=== PATIENT | female | born 1925 | race Caucasian/White ===

== ENCOUNTER 2016-03-19 09:50 | Inpatient (IN) | payer MEDICARE, OTHER ==
[~2016-03-19] VITALS: Ht 165.1 cm; Wt 69.4 kg
[2016-03-19] VITALS (9 sets, daily range): BP systolic 184–202; BP diastolic 71–118; PULSE 60–71; RESP 17–26; O2SAT 92–98
[~2016-03-19 09:50] MED LIST: ASCO-294 PO; ATOR10TA66 PO; CARV25TA2 PO; FRSM80T PO; GARL1CAP7 PO; ISOS30TA8 PO; LEVO50TA6 PO; LOSA100T29 PO; POTA20TA16 PO; WARF3TAB7 PO
--- NOTE | 2016-03-19 09:56 | ED.REPORT ---
HPI-Stroke / CVA Mar 19, 2016 ED Provider: Ranjeet Galaviz MD History of Present Illness: SANTOSH Pt is an 89 y/o female anticoagulated on Warfarin w/ a hx of a-fib, HTN, CVA without residual deficits, pacemaker, presenting to the ED via EMS due to gradually improving stroke-like symptoms onset unknown. Last known normal is unclear but is at least the evening of 03/18/16. Neighbors noted that she had not opened her curtains this morning which is abnormal for her, she was then found in bed with an altered mental status and dysarthria. Upon EMS arrival, she was unable to move her left arm or left leg. Systolic BP was 210/100. Medics believe that her symptoms have improved by time of interview. She c/o associated severe headache onset yesterday. She denies CP, abdominal pain, nausea, vomiting, fever, chills. Her chief complaint at time of interview is that she is missing her skin-care appointment. Nursing Notes Stated Complaint: STROKE Chief Complaint: Neuro Symptoms/ Deficits Nursing Notes Reviewed: Yes ([employer] not reconciled) Allergies: Coded Allergies: codeine (Verified Allergy, Severe, 03/19/16) lisinopril (Verified Allergy, Severe, 05/17/14) zolpidem (Verified Allergy, Severe, 05/17/14) acetaminophen (Verified Allergy, Unknown, 05/17/14) hydrocodone (Verified Allergy, Unknown, 05/17/14) Uncoded Allergies: CLINDAMIACIN (Allergy, Unknown, 05/17/14) Scheduled Ascorbate Calcium (Vitamin C) 500 Mg Tablet 500 MG PO DAILY (Reported) Atorvastatin Calcium (Atorvastatin Calcium) 10 Mg Tablet 10 MG PO DAILY ( Reported) Furosemide (Furosemide) 80 Mg Tab 80 MG PO DAILY (Reported) Garlic (Garlic) 1 Each Tablet 1 EACH PO DAILY (Reported) Isosorbide MN ER (Isosorbide MN ER) 30 Mg Tab.er.24h 30 MG PO DAILY (Reported) Levothyroxine (Levothyroxine) 50 Mcg Tablet 50 MCG PO DAILY (Reported) Losartan Potassium (Losartan Potassium) 100 Mg Tablet 100 MG PO DAILY (Reported ) Metoprolol Succinate ER (Metoprolol Succinate ER) 50 Mg Tab.er.24h 50 MG PO BID (Reported) Potassium Chloride (Potassium Chloride) 10 Meq Capsule.er 20 MEQ PO BID ( Reported) Warfarin Sodium (Warfarin Sodium) 3 Mg Tablet 1.5 MG PO MWF (Reported) Warfarin Sodium (Warfarin Sodium) 3 Mg Tablet 3 MG PO SuTuThSa (Reported) General Time Seen by Provider: 09:55 Chief Complaint Weakness, Mental status change, Slurred speech Left-sided Hx Obtained From: Patient, EMS Arrived By: Ambulance Time last known well Unclear Sudden in Onset?: No (unclear) Progression Since Onset: Gradually improving Severity: Current: No pain currently Severity: Maximum: No pain Risk Factors )( TPA Administration/Criteria Stroke Thrombolytic Therapy : TPA Considered: Yes TPA Administered Intravenously: No, exclusion criteria NIH Stroke Scale Level of Consciousness: Not alert, arousable (1) Ask Month & Age: Both questions right (0) Open/Close Eyes/Hand Network Security Administrator: Performs 1 task (1) Horizontal EO Movements: None (0) Visual Wolff: No visual loss (0) (Difficulty assessing) Facial Palsy: Unil complete, up&low (3) Right Arm Motor Drift (10s): No drift 10 sec (0) Left Arm Motor Drift (10s): No movement (4) Right Leg Motor Drift (5s): No drift 5 sec (0) Left Leg Motor Drift (5s): No movement (4) Limb Ataxia FNF/Heel-Bautista: No ataxia (0) Sensation (Arms/Legs/Face): No sensory loss (0) Language Aphasia: Loss fluency ID matls (1) (able to read and name things, slow and had to work hard to name items) Dysarthria: Slurring intelligible (1) Extinction/Inattention: No exctinct/inattent (0) NIHSS Score: 15 Time NIHSS Performed: 10:10 Date NIHSS Performed: Mar 19, 2016 Past Medical History Past Medical History Ovarian cancer in remission following completion of 6 cycles of adjuvant chemotherapy in April 2012 Chronic anticoagulation or atrial fibrillation on warfarin History of tachybradycardia syndrome with pacemaker sign Hypertension Hypothyroid CVA Past Surgical History Pacemaker Hysterectomy in 1964 Colectomy in 1996 for colon carcinoma Smoking History Never Smoker Social History Alcohol Use: Denies alcohol use Drug Use: Denies drug use Ambulatory Status Independent Review of Systems Constitutional: Denies: Chills, Fever Cardiovascular: Denies: Chest pain GI: Denies: Abdominal pain, Nausea, Vomiting Neurologic: Reports: Confusion, Focal weakness (L sided), Headache, Slurred speech Complete sys rev & neg: except as marked. Physical Exam Initial Vital Signs Vital Signs (First) Date Time Temp Pulse Resp B/P Pulse Ox O2 Delivery O2 Flow Rate FiO2 03/19/16 09:51 37.0 71 26 194/71 96 Room Air 03/19/16 10:38 4 Initial VS: Reviewed, Vital signs abnormal ENT: Mucous membranes moist, Conjunctiva normal, No scleral icterus Abdomen / GI: Soft, Non-tender Skin: Warm, Dry, No cyanosis General/Constitutional: Awake No visible signs of trauma Head / Eyes: Atraumatic, Normocephalic, PERRL (3 mm bilat) Neck: Atraumatic, Supple, No meningismus, Full range of motion Respiratory / Chest: Atraumatic, Breath sounds NL, Breath sounds = bilat, No respiratory distress, No rales, No rhonchi, No wheezing, No retractions, No stridor, No chest tenderness, No chest wall deformity, No crepitus Cardiovascular: Heart rate NL, Heart sounds NL, No gallop, No murmurs, No rubs , Cap refill not delayed, Peripheral circulation NL Paced rhythm Neurologic: Cerebellar NL See NIH stroke scale = 15 Interpretation & Diagnostics Lab Results Interpretation Result Diagram: 03/19/16 0950 03/19/16 0950 Test 03/19/16 09:50 03/19/16 11:51 White Blood Count 8.5th/mm3 (3.8-10.1) Red Blood Count 4.89mil/mm3 (3.90-5.20) Hemoglobin 14.1g/dL (12.0-15.6) Hematocrit 43.7% (35.0-46.0) Mean Corpuscular Volume 89.4fL (81-100) Mean Corpuscular Hemoglobin 28.8pg (27.0-35.0) Mean Corpuscular Hemoglobin Concent 32.3% (32.0-37.0) Red Cell Distribution Width 14.9% (12.3-15.4) Platelet Count 145bil/L (150-400) Neutrophils (%) (Auto) 81.0% (40-74) Lymphocytes (%) (Auto) 12.3% (14-46) Monocytes (%) (Auto) 6.4% (4-12) Eosinophils (%) (Auto) 0.1% (0-5) Basophils (%) (Auto) 0% (0-3) Prothrombin Time 17.5sec (8.1-12.5) Prothromb Time International Ratio 1.62ratio Activated Partial Thromboplast Time 40.0sec (22.8-33.0) Sodium Level 143mEq/L (134-144) Potassium Level 4.8mEq/L (3.5-5.2) Chloride Level 106mEq/L (97-108) Carbon Dioxide Level 25mmol/L (18-29) Blood Urea Nitrogen 29mg/dL (8-27) Creatinine 1.58mg/dL (0.57-1.00) Estimat Glomerular Filtration Rate 44mL/min (>59) Glucose Level 145mg/dL (60-99) Calcium Level 9.5mg/dL (8.5-10.1) Magnesium Level 2.3mg/dL (1.6-2.6) Total Bilirubin 1.5mg/dL (0.0-1.2) Aspartate Amino Transf (AST/SGOT) 21U/L (0-50) Alanine Aminotransferase (ALT/SGPT) 13U/L (0-32) Alkaline Phosphatase 67U/L (25-165) Troponin T 0.026ug/L (0.0-0.011) Total Protein 7.0g/dL (6.4-8.4) Albumin 3.9g/dL (3.4-5.0) Lab Results Interpretation: cbc nl CMP mild renal insufficiency, chronic and unchanged INR subtherapeutic Troponin #1 elevated, uncertain significance (patient severely hypertensive, has stroke which can raise troponin, also has chronic renal insufficiency- all complicated interpretation) ECG Interpretation ECG Interpretation: Sinus rhythm rate 64 LBBB Compared to EKG taken Jan 2008, LBBB is new. Time: 10:38 Interpreted by: ED physician Normal ECG Interpretation: No acute ischemic changes CT Head Interpretation IMPRESSION: 1. No acute intracranial process. 2. Moderate atrophy and chronic microvascular ischemic changes. The above findings were discussed with Dr. Ranjeet Galaviz on 03/19/16 at 10:07 AM. This study fulfills neurological imaging criteria for inclusion or exclusion of acute stroke therapies based on available published neurological guidelines. Dictated by: Kaila Aparicio M.D. on 03/19/2016 at 10:09 Approved by: Kaila Aparicio M.D. on 03/19/2016 at 10:09 Study: Head CT no contrast Interpretation / Wet Read by: Interpret - Radiologist Re-Eval/Medical Decision Med Decision/Clinical Course This is an 89 year old female on warfarin for history of atrial fibrillation who was last seen yesterday by report, and last known to be normal 3 days ago was brought by EMS with concern for stroke. The neighbor noted that the patient had not opened her curtains today which is unusual, contacted a family member who drove her checked on the patient, found the patient in bed with left-sided weakness and slurred speech. The patient is able tell me she has had a headache since yesterday through slurred speech, it is not entirely clear when the hemiplegia of the left arm and left leg began, she feels her blood pressure is up. However while she can talk to me, she is not alert, and has been prompted to converse. Her actual chief complaint me is that she has a dermatology appointment today and so she had as call them to notify them that she would not be able to make it. She still has a moderate headache, but she does not want any pain medicine for it. ( Although the patient is able to complain about the dermatology appointment, and answer limited questions-is immediate obviously when he walked into the room the patient is very ill. Again while she will converse-required significant stimulation, she prefers to keep her eyes closed, her speech is slightly slurred , insight is not spectacular, she has gross hemiplegia on the left) She denies any trauma. She has had headaches before and says it often happens when her blood pressure is high. Patient does have a fairly severe stroke with an NIH stroke scale of at least 15 , but both he anticoagulated status, and a last known normal of 3 days ago ( with a report that she may been normal yesterday, onset yesterday,) and the fact the patient is complaining of a headache while on warfarin, all all contraindications to TPA and she is not a candidate (not to mention her age presents with an elevated risk of hemorrhage) CT the head revealed no clear acute process. She received rectal aspirin. While hypertensive, she has not cross the threshold of 220 systolic or 120 diastolic requiring medication intervention per hospital protocol, but a when necessary dose for labetalol has been placed should that occur Kcorqeki-ut-gai is present, but the daughter who power of patent prosecution attorney is coming up from [place]. Talk with the patient, I am concerned about her insight and decision-making capacity in terms really being able to answer the question about CODE STATUS. The [id number]-fc-[id number] who is present does not think the patient would wish to be intubated or resuscitated, but would prefer to have the family member is coming up from [place] to help make that decision as expected in a few hours. Case is discussed with the hospitalist and patient admitted for continued management. Patient was evaluated by speech therapy and is nothing by mouth. She received rectal aspirin. Source of Hx: Old records, EMS Re-Evaluation/Progress : Time of Eval: 10:16 Re-Evaluation/Progress Note: Pt rechecked. Informed pt of need for admission. Pt understands and agrees with plan for admission. All questions addressed. Consultation : Referral / Consult Name: Johnny Perez MD Consulted With: Hospitalist Call Returned at: 11:55 Lecturer In Marketing: Will see patient, Agrees with eval, Agrees with plan, Accepts admit Note: Case discussed. Differential Diagnosis: Positive: Cerebrovascular accident, Negative: Epidural hemorrhage, Hepatic encephalopathy, Hypoglycemia, Malignancy, Mass lesion, Sepsis, Subarachnoid hemorrhage, Subdural hemorrhage Counseled Regarding: Diagnosis, Lab results, Need for admission Patient Discharge & Departure Impression: Primary Impression: CVA (cerebral vascular accident) CVA mechanism: unspecified Qualified Code: I63.9 - Cerebral infarction, unspecified Additional Impressions: Anticoagulated on Coumadin Subtherapeutic international normalized ratio (INR) HTN (hypertension) Hypertension type: unspecified secondary hypertension Hypertension goal: unspecified goal Qualified Code: I15.9 - Secondary hypertension, unspecified Elevated troponin Disposition: ADMITTED TO HOSPITAL Discharge Condition All VS Reviewed: Yes Condition: Stable Referrals: Shin North MD (PCP) Crit Care Except Billable Proc Time Spent: 30-74 minutes Services Performed: Patient management by me, Time spent at bedside, Reviewing test results, Reviewing imaging, Discussing patient care, Documentation in record Scribe Attestation Portions of this note were transcribed by Faustino Underwood. I, Dr. Galaviz personally performed the history, physical exam and medical decision-making; I reviewed and confirmed the accuracy of the information in the transcribed note. Signed by Jaspal Calixto, 03/19/16 - 1130 copies to: Shin North MD, Matthew F MD Mar 19, 2016 09:56 FAUSTINO UNDERWOOD Mar 19, 2016 10:01
[2016-03-19 10:00] LABS: BASOPHILS % (AUTO) 0 % (0-3); EOSINOPHILS % (AUTO) 0.1 % (0-5); MONOCYTES % (AUTO) 6.4 % (4-12); Mean Corpuscular Hemoglobin 28.8 pg (27.0-35.0); Mean Corpuscular Volume 89.4 fL (81-100); Platelet Count 145 bil/L (150-400)
--- NOTE | 2016-03-19 10:10 | DRSVH ---
PROCEDURE: CT BRAIN (TPA) ([id number]) INDICATIONS: Stroke TECHNIQUE: Noncontrast 4.5 mm thick angled axial sections acquired from the foramen magnum to the vertex, with c oronal reformats. COMPARISON: [place], [place], PET/CT NECK TO MID THIGH, 02/20/2012, 13:51. FINDINGS: Image quality: Excellent. CSF spaces: Basal cisterns are patent. No extra-axial fluid collections. The ventricles are symmet jyoti in size and shape. Brain: No intracranial bleeds or masses. There is cerebral volume loss for age, with resultant vent ricular and sulcal prominence. There are periventricular and deep white matter chronic small vessel ischemic changes. There is intracranial internal carotid artery atherosclerosis. Skull and face: Calvarium and visualized facial bones appear intact, without suspicious lesions. Sinuses: Visualized sinuses and mastoids are clear. IMPRESSION: 1. No acute intracranial process. 2. Moderate atrophy and chronic microvascular ischemic changes. The above findings were discussed with Dr. Ranjeet Galaviz on 03/19/16 at 10:07 AM. This study fulfills neurological imaging criteria for inclusion or exclusion of acute stroke therapie s based on available published neurological guidelines. Dictated by: Kaila Aparicio M.D. on 03/19/2016 at 10:09 Approved by: Kaila Aparicio M.D. on 03/19/2016 at 10:09
[2016-03-19 10:13] LABS: INR 1.62 ratio
[2016-03-19 10:18] LABS: TROPONIN T 0.026 ug/L (0.0-0.011)
[2016-03-19] MEDS ORDERED: Labetalol 5 mg/mL 4 mL Inj IV PRN (11:00)
[2016-03-19] MEDS ORDERED: 0.9% Sodium Chloride 1,000 ML IV PRN (11:51)
[2016-03-19] MEDS ORDERED: Ondansetron 2 mg/mL 2 mL Inj IV PRN (11:55)
[2016-03-19] MEDS ORDERED: Polyethylene Glycol (PEG) 17 Gm Powder PO PRN (11:55)
[2016-03-19] MEDS ORDERED: Alum-Mag Hydrox-Simeth 30 mL Suspension PO PRN (11:55)
[2016-03-19] MEDS: 0.9% Sodium Chloride 1,000 ML IV SCH (13:10)
[2016-03-19] MEDS ORDERED: ISOS30TA4 PO (14:12)
[2016-03-19] MEDS ORDERED: GARL1TAB PO (14:12)
[2016-03-19] MEDS ORDERED: POTA10CA42 PO (14:12)
[2016-03-19] MEDS ORDERED: METO-272 PO (14:12)
--- NOTE | 2016-03-19 15:47 | PCM.HPMED ---
Subjective Date of Service Mar 19, 2016 Primary Provider: Admitting Physician: Johnny Perez MD Primary Care Physician: Shin North MD Attending Physician: Johnny Perez MD Admit Status: From the Emergency Department, Admit to [facility] Team Chief Complaint: 89-year-old woman with resistant hypertension and atrial fibrillation presents with acute CVA History of Present Illness: Patient lives alone and manages her own affairs. She last spoke to her family member on the evening prior to day of admission. At that time there were no complaints or abnormalities noted. In the morning on the day of admission a neighbor noticed that her curtains were not open and contacted the family. A [id number]-ris came to the home and found her mother obviously impaired with left-sided hemiplegia. The patient is somewhat sedated but has remained somewhat communicative throughout. She complains of a left-sided headache. She states that her A. fib was bad last night, but is not clear about what this means. She is concerned about missing her upcoming dermatology appointment. When asked she is not aware of any neurologic deficits. She is oriented to date but does not now cannot recognize she is in the hospital. Review of Systems: Patient is unable to comply with review of systems due to poor attention span and encephalopathy. Allergies Coded Allergies: codeine (Verified Allergy, Severe, 03/19/16) lisinopril (Verified Allergy, Severe, 05/17/14) zolpidem (Verified Allergy, Severe, 05/17/14) acetaminophen (Verified Allergy, Unknown, 05/17/14) hydrocodone (Verified Allergy, Unknown, 05/17/14) Uncoded Allergies: CLINDAMIACIN (Allergy, Unknown, 05/17/14) Home Medications Atorvastatin 10 mg daily Furosemide 80 mg daily Isosorbide mononitrate 30 mg daily Levothyroxine 50 g daily Losartan 100 mg daily Metoprolol succinate ER 50 mg twice a day Potassium chloride 20 mg twice a day Warfarin 3 mg, alternating with 1.5 mg on MWF PMH # Hypertension given family reports difficult to control blood pressure with frequent systolics in 200 range # atrial fibrillation and/or SVT - status post pacemaker device; on beta yimi and warfarin # History of ovarian cancer in remission since 2012; status post carboplatin adjuvant therapy # History of colon cancer status post partial colectomy in 1986 # History of Aldridge's palsy # Questionable history of prior CVA - family denies this and suggested may have been confused with an episode of Aldridge's palsy. Family History No hypercoagulability disorders Social History Hx Alcohol Use: No Hx Substance Use: No Hx Tobacco Use: No Smoking Status: Never Smoker Living Arrangement: Alone (manages most of her own ADLs; family nearby) Exam Vital Signs Vital Sign - Last Date Time Temp Pulse Resp B/P Pulse Ox O2 Delivery O2 Flow Rate FiO2 03/19/16 13:27 62 03/19/16 12:37 37.2 18 184/118 98 Nasal Cannula 2.00 Exam Constitutional: Elderly woman with obvious left face droop lying quietly in bed ; vital signs noted Eyes: Right-sided gaze preference, sclerae anicteric, no conjunctival pallor, ENMT: nose atraumatic; oral mucosa seems moist Neck: supple; no audible bruit Chest: Breathing pattern is symmetric, no pain or lesions Resp: auscultation generally clear, no wheezes, rales; patient unable to sit up Cardiac: S1, S2, regular, no murmur Abdomen: bowel sounds present, nontender, no organomegaly Musculoskeletal: no joints with acute erythema, swelling Skin and soft tissues: no rash; no pitting edema Peripheral pulses: normal at wrist, feet Lymphatic: no adenopathy cervical Neurological: Cranial Nerves - left face droop, minimal opening left eye. Unable to comply with extraocular movement testing. No blink reflex from right field. Reflexes - BJ 2+, KJ 3+ on right with clonus, 1+ on the left; Babinski is positive on left Motor - 0/5 strength left arm and left leg, flaccid tone in left arm, normal tone left leg; motor function 54/5 on right; no pronator drift on right Coordination - unable to comply fully but seems normal on the right Sensory - unable to elicit reliable response Psych & Mental Status - sleepy but recalls today's date, thinks she is at home, answers simple questions recalls several accurate details Lab and Diagnostics Result Diagram: 03/19/16 0950 03/19/16 0950 X-Rays, CTs and MRIs PROCEDURE: CT BRAIN (TPA) ([id number]) FINDINGS: Image quality: Excellent. Brain: No intracranial bleeds or masses. There is cerebral volume loss for age , with resultant ventricular and sulcal prominence. There are periventricular and deep white matter chronic small vessel ischemic changes. There is intracranial internal carotid artery atherosclerosis. IMPRESSION: 1. No acute intracranial process. 2. Moderate atrophy and chronic microvascular ischemic changes. Dictated by: Kaila Aparicio M.D. on 03/19/2016 at 10:09 . 12-lead ECG 03/19 and NSR rate 65, LBBB pattern, inverted T waves inferiorly and V4-V6, slight ST depression II, V5-V6 Assessment & Plan 82-year-old woman with history of hypertension and A. 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 She is not a candidate for TPA, largely because of timing from last normal neuro state. Initial noncontrast head CT does not show CVA. CT suggests atherosclerotic disease of carotid distribution. Etiologies either athero-thrombotic versus cardio thromboembolic. Current headache is plausibly related to her CVA. - MRI/MRA - Echocardiogram - Telemetry monitoring - Permissive HTN up to SBP 220, DBP 120 - PT, OT - Speech Consult, swallow evaluation, NPO, aspiration precautions, maintenance IV fluids - VTE prophylaxis - warfarin at present, transitioned to subcutaneous heparin or enoxaparin when INR less than 1.5 - ASA - d/c on statin and anti-platelet therapy # Atrial fibrillation, chronic paroxysmal. She is currently in sinus rhythm. Anticoagulation was subtherapeutic. - Hold warfarin at present while observing for risk of hemorrhagic conversion of CVA - Repeat INR in a.m. - Rate control as needed if she reverts to A. fib with parenteral beta yimi - Telemetry monitoring # Hypertension - Permissive hypertension criteria 48 hours then resume blood pressure control # Elevated bilirubin. Other LFTs are normal. No signs of abdominal pathology. - Follow at appropriate interval. Stable, resolved and her chronic problems: #Chronic kidney disease stage III. Creatinine creatinine of 1.65, 1.58 seems in range of her recent baseline. - Avoid nephrotoxins - Follow BMP # Ovarian cancer in remission VTE prophylaxis - currently anticoagulated on warfarin; will initiate heparin prophylaxis as INR drops. CODE STATUS discussed with family who endorsed that she has a POLST form confirming DO NOT RESUSCITATE/DO NOT INTUBATE Pain Evaluation: Adequate Pain Control GI Prophylaxis: Not indicated VTE Prophylaxis: Theraputic Anticoag with Warfarin Resuscitation Status: DNR/DNI:Do Not Resuscitate/Intubate Time spent 60 minutes Johnny Perez MD Mar 19, 2016 15:47
--- NOTE | 2016-03-19 15:59 | DRSVH ---
PROCEDURE: US BILATERAL DUPLEX DOPPLER IMAGING OF THE CAROTIDS ([id number]) INDICATIONS: Evaluate stroke follow up TECHNIQUE: Color and pulse Doppler interrogation was performed of both carotid systems, with image documentation and velocity measurements. COMPARISON: None. FINDINGS: All stenosis calculations are based on NASCET criteria. Right side: Brachial blood pressure: 184/118 and mm Hg. Common Carotid Artery(Distal) PSV: 60.20 cm/s Internal Carotid Artery PSV- Proximal: 46.30 cm/s Mid-lon.10 cm/s Distal: 43.30 cm/s EDV - Proximal: 10.80 cm/s Mid-lon.40 cm/s Distal: 13.90 cm/s External Carotid Artery(Proximal) PSV: 78.10 cm/s ICA/CCA PSV ratio: 0.8 Aggarwal scale imaging description: Minimal plaque. Percent internal carotid artery stenosis: Less than 50%. Vertebral artery: Flow direction is antegrade. Left side: Brachial blood pressure: Not obtained. Common Carotid Artery(Distal) PSV: 54.10 cm/s Internal Carotid Artery PSV - Proximal: 66.80 cm/s Mid-lon cm/s Distal: 80 cm/s EDV - Proximal: 15.90 cm/s Mid-lon cm/s Distal: 23.70 cm/s External Carotid Artery(Proximal) PSV: 97.70 cm/s ICA/CCA PSV ratio: 1.5 Aggarwal scale imaging description: Minimal plaque. Percent internal carotid artery stenosis: Less than 50%. Vertebral artery: Flow direction is antegrade. IMPRESSION: Less than 50% bilateral internal carotid artery stenosis. Hypertension at time of exam. Dictated by: Karson Gomez RR Interpreted: Frida Felder MD on 03/19/2016 at 15:59 Transcribed by: KIKO on 03/19/2016 at 15:59 Approved by: Frida Felder MD, PhD on 03/19/2016 at 16:57
[2016-03-19 23:58] LABS: APPEARANCE,URINE SLIGHTLY CLOUDY (CLEAR,HAZY); COLOR,URINE YELLOW (YELLOW); OCCULT BLOOD,URINE LARGE (NEGATIVE)
[2016-03-19 23:59] LABS: UROBILINOGEN,URINE NORMAL (NORMAL)
[2016-03-20] VITALS (10 sets, daily range): BP systolic 153–210; BP diastolic 73–121; PULSE 62–101; RESP 20–26; O2SAT 95–97
[2016-03-20] MEDS: 0.9% Sodium Chloride 1,000 ML IV SCH ×2 (01:36→16:12)
[2016-03-20 05:48] LABS: Mean Corpuscular Hemoglobin 29.1 pg (27.0-35.0); Mean Corpuscular Volume 91.3 fL (81-100)
[2016-03-20 06:06] LABS: INR 1.68 ratio
[2016-03-20] MEDS: hydrALAZINE 20 mg/mL Inj IVPUSH PRN (10:22)
--- NOTE | 2016-03-20 12:49 | DRSVH ---
[facility] [address] [place] [address] Echocardiogram Report Name: CHIDI FIGUEROA EStudy Date: 03/20/2016 Height: 65 in Hospital Exam Location: [facility] Weight: 150 lb Gender: Female BSA: 1.8 m2 : 1925 Age: 89 yrs BP: 204/79 mmHg Reason For Study: CVA Ordering Physician: Performed By: Sarah Ruiz Referring Physician: Shin North Interpretation Summary The left ventricle is normal in size. Left ventricular systolic function is normal. The ejection fraction is estimated to be 60-65%. LVEF is unchanged since prior study. There are no focal wall motion abnormalities. Borderline right ventricular enlargement. There is a pacemaker lead in the right ventricle. The right ventricular systolic function is normal. The right ventricular systolic pressure is estimated at 55 mmHg assuming a right atrial pressure of 8 mm Hg. RVSP has increased. The left atrium is mildly dilated. Right atrial size is normal. There is moderate tricuspid regurgitation. There is mild mitral regurgitation. There is mild aortic regurgitation. There is no other significant valvular heart disease. The ascending aorta is mildly enlarged. The aortic arch is mild-moderately enlarged. Moderate atherosclerotic plaque(s) in the aortic arch. Procedure: A two-dimensional transthoracic echocardiogram with color flow and Doppler was performed. The study quality was technically adequate. Comparison is made with the echocardiogram of 09-18-15. The patient has a paced rhythm. Left Ventricle: The left ventricle is normal in size. Left ventricular systolic function is normal. The ejection fraction is estimated to be 60-65%. There are no focal wall motion abnormalities. Diastolic function could not be accurately assessed due to paced rhythm. Right Ventricle: Borderline right ventricular enlargement. There is a pacemaker lead in the right ventricle. The right ventricular systolic function is normal. Atria: The left atrium is mildly dilated. Right atrial size is normal. There is a catheter/pacemaker lead seen in the right atrium. The interatrial septum is intact with no evidence for an atrial septal defect. Mitral Valve: The mitral valve leaflets appear mildly thickened, but open well. There is mild to moderate mitral annular calcification. There is mild mitral regurgitation. Aortic Valve: The aortic valve is trileaflet. Leaflet mobility is mildly reduced. The aortic valve is moderately calcified. There is no hemodynamically significant valvular aortic stenosis. There is mild aortic regurgitation. Tricuspid Valve: The tricuspid valve leaflets are thin and pliable. There is moderate tricuspid regurgitation. The right ventricular systolic pressure is estimated at 55 mmHg assuming a right atrial pressure of 8 mm Hg. Pulmonic Valve: The pulmonic valve is normal in structure and function. There is trace pulmonic regurgitation. There is no other significant valvular heart disease. Great Vessels: The aortic root is not well visualized. The ascending aorta is mildly enlarged. The aortic arch is mild-moderately enlarged. Moderate atherosclerotic plaque(s) in the aortic arch. The IVC is of normal diameter and collapses less than 50% with a sniff. This suggests a right atrial pressure of 8 mm Hg. Pericardium/ Pleura There is no pericardial effusion. There is a small left -sided pleural effusion. MMode/2D Measurements & Calculations LVIDd LA dimension: 4.2 cm RA long axis: 5.7 cm LVOT diam: 1.8 cm : 4.3 cm Ao root diam LVIDs LA A2 area: 21.3 cm RA area: 20.1 cm : 2.5 cm LA A4 area: 24.7 cm RA vol: 60.0 ml Aortic Jxn: 2.2 cm FS: 43.4 % LA length (vol) RA : 34.3 ml/m asc Aorta Diam IVSd RVDd major: 5.8 cm : 0.9cm LA vol: 72.1 ml Ao Arch Diam (Prox LVPWd LA vol index Trans): 3.8 cm : 0.8cm IVC diam: 1.9 cm YON (plan) LV allen. diameter/BSA LV sys. diameter/BSA RVD1 (basal) : 1.1 cm2 (cm/m^2): 2.5 (cm/m^2): 1.4 : 4.3 cm RVD2 (mid) : 3.7 cm Doppler Measurements & Calculations Ao V2 max: 218.6 cm/sec MV P1/2t TR max jeffry MV V2 mean Ao max P.1 mmHg : 53.0 msec : 342.1 cm/sec : 66.7 cm/sec Ao mean P.8 mmHg MVA(VTI): 4.0 cm2 TR max PG MV mean PG LVOT Max Jeffry : 46.8 mmHg : 115.5 cm/sec PA V2 max MV V2 VTI YON(I,D): 1.7 cm : 90.5 cm/sec : 16.6 cm sev ratio: 0.63 PA mean PG PA Accel Time MV P1/2t max jeffry Ao V2 mean LV V1 max PG PA V2 mean : 154.0 cm/sec : 58.2 cm/sec MVA(P1/2t): 4.2 cm2 Ao V2 VTI: 39.4 cmLV V1 VTI: 24.9 cm YON(V,D): 1.4 cm2 YON indexed to BSA (cm^2/m^2): 0.97 Reading Physician:NARCISA
--- NOTE | 2016-03-20 15:46 | DRSVH ---
PROCEDURE: X-RAY LEFT KNEE, THREE VIEWS ([id number]) INDICATIONS: pain TECHNIQUE: 3 views of the knee were acquired. COMPARISON: None. FINDINGS: Bones: There is mild bilateral femorotibial compartment joint space narrowing. There are small tricom partmental osteophytes. There is lateral calcific tendinitis. Soft tissues: No joint effusion. No suspicious soft tissue calcifications. IMPRESSION: Mild degenerative change and calcific tendinitis. Dictated by: Izzy Ron M.D. on 03/20/2016 at 15:44 Approved by: Izzy Ron M.D. on 03/20/2016 at 15:44
[2016-03-21] VITALS (12 sets, daily range): BP systolic 182–215; BP diastolic 106–127; PULSE 10–123; RESP 20–26; O2SAT 95–97
[2016-03-21] MEDS: 0.9% Sodium Chloride 1,000 ML IV SCH ×2 (02:00→15:29)
[2016-03-21] MEDS: hydrALAZINE 20 mg/mL Inj IVPUSH PRN ×2 (09:34→23:57)
--- NOTE | 2016-03-21 11:19 | PCM.PNMED ---
Subjective Date of Service Mar 21, 2016 Subjective The patient is able to speak today. She denies discomfort. She has relatively fluent speech. She can understand and follow commands. She has a dense left hemiparesis. She has not been reevaluated by speech. She states she is very thirsty. Exam Vital Signs Vital Sign - Last Date Time Temp Pulse Resp B/P Pulse Ox O2 Delivery O2 Flow Rate FiO2 03/21/16 10:58 99 186/106 03/21/16 09:19 36.6 20 96 Nasal Cannula 03/21/16 04:09 3.00 Intake and Output 03/20/16 03/20/16 03/21/16 Cumulative From/Thru 14:59 22:59 06:59 03/19/16 09:51 - 03/21/16 06:47 Intake Total 866 ml 960 ml 3167 ml Output Total 1700 ml 500 ml 3300 ml Balance -834 ml 460 ml -133 ml Intake Oral 0 ml 0 ml 0 ml IV Total 866 ml 960 ml 3167 ml Output Urine Total 1700 ml 500 ml 3300 ml Exam Dense left hemiparesis. She also has a left facial droop. She has mild dysarthria. Pupils are symmetric. She has clear lungs and normal effort. Heart is regular without murmur Abdomen soft nondistended Extremities are free of edema good pedal pulses. Skin is free of rash or lesion IVs and Medications Medications Reviewed: Medications were reviewed in detail Lab and Diagnostics Result Diagram: 03/20/16 0424 03/20/16 0424 X-Rays, CTs and MRIs PROCEDURE: CT BRAIN (TPA) ([id number]) FINDINGS: Image quality: Excellent. Brain: No intracranial bleeds or masses. There is cerebral volume loss for age , with resultant ventricular and sulcal prominence. There are periventricular and deep white matter chronic small vessel ischemic changes. There is intracranial internal carotid artery atherosclerosis. IMPRESSION: 1. No acute intracranial process. 2. Moderate atrophy and chronic microvascular ischemic changes. Dictated by: Kaila Aparicio M.D. on 03/19/2016 at 10:09 . 12-lead ECG 03/19 and NSR rate 65, LBBB pattern, inverted T waves inferiorly and V4-V6, slight ST depression II, V5-V6 Assessment & Plan 82-year-old woman with history of hypertension and A. 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 She is not a candidate for TPA, largely because of timing from last normal neuro state. Initial noncontrast head CT does not show CVA. CT suggests atherosclerotic disease of carotid distribution. Etiologies either athero-thrombotic versus cardio thromboembolic. Current headache is plausibly related to her CVA. -The patient is a pacemaker therefore cannot have an MRI. She has full visual gil to the left and possibly mild neglect. The plan is a serial CT scan to see if this is a cortical infarct. We will also start rectal aspirin. # Atrial fibrillation, chronic paroxysmal. She is currently in sinus rhythm. Anticoagulation was subtherapeutic. - Hold warfarin at present while observing for risk of hemorrhagic conversion of CVA - Repeat INR in a.m. - Rate control as needed if she reverts to A. fib with parenteral beta yimi - Telemetry monitoring will need to discuss whether or not resumption of Coumadin and when is appropriate. This will likely be delayed by about 2 weeks given the size of her probable right hemispheric cortical infarct. # Hypertension - Permissive hypertension criteria 48 hours then resume blood pressure control # Elevated bilirubin. Other LFTs are normal. No signs of abdominal pathology. - Follow at appropriate interval. Stable, resolved and her chronic problems: #Chronic kidney disease stage III. Creatinine creatinine of 1.65, 1.58 seems in range of her recent baseline. - Avoid nephrotoxins - Follow BMP # Ovarian cancer in remission VTE prophylaxis - currently anticoagulated on warfarin; will initiate heparin prophylaxis as INR drops. CODE STATUS discussed with family who endorsed that she has a POLST form confirming DO NOT RESUSCITATE/DO NOT INTUBATE Pain Evaluation: Adequate Pain Control GI Prophylaxis: Not indicated VTE Prophylaxis: Theraputic Anticoag with Warfarin Resuscitation Status: DNR/DNI:Do Not Resuscitate/Intubate Time spent 30 minutes Silvano Jc MD Mar 21, 2016 11:19
--- NOTE | 2016-03-21 13:25 | DRSVH ---
PROCEDURE: CT BRAIN WITHOUT CONTRAST ([id number]) INDICATIONS: stroke TECHNIQUE: Noncontrast 4.5 mm thick angled axial sections acquired from the foramen magnum to the vertex, with c oronal reformats. COMPARISON: [facility], US, US CAROTID DPLX DOPPLER BILAT, 03/19/2016, 13:31. [facility], CT, BRAIN (TPA), 03/19/2016, 10:01. FINDINGS: Image quality: Excellent. CSF spaces: Basal cisterns are patent. No extra-axial fluid collections. The ventricles are symmet jyoti in size and shape. Brain: There is a relatively broad area of infarction seen involving the right basal ganglia and the thapa radiata. This has progressed compared to the prior examination and is far more conspicuous o n the current study. There is a mild degree of hyperdensity seen along the posterior aspect of the i nfarcted region of the brain, as on series 2 image 15. No masses are seen. There is cerebral volume loss for age, with resultant ventricular and sulcal pro minence. There are periventricular and deep white matter chronic small vessel ischemic changes. The re is intracranial internal carotid artery atherosclerosis. Skull and face: Calvarium and visualized facial bones appear intact, without suspicious lesions. In cidental note is made of hyperostosis frontalis. This is not considered to be pathologic in a woman o f this age. Sinuses: Visualized sinuses and mastoids are clear. IMPRESSION: Broad area of infarction involving the right basal ganglia and thapa radiata, which has developed since the prior CT. Along the posterior aspect of the infarcted brain, there is a mild degree of hyperdensity. This is h ighly worrisome for mild hemorrhagic transformation. Note is made of age-appropriate brain parenchymal volume loss and chronic small vessel ischemic [place] es. Note: Case discussed by telephone with Dr. Silvano Jc at [address] time on March 21, 2016. Dictated by: Akhil Monte M.D. on 03/21/2016 at 12:24 Approved by: Akhil Monte M.D. on 03/21/2016 at 12:24
[2016-03-22] VITALS (17 sets, daily range): BP systolic 172–204; BP diastolic 95–125; PULSE 75–133; RESP 16–24; O2SAT 89–99
[2016-03-22] MEDS: 0.9% Sodium Chloride 1,000 ML IV SCH ×2 (04:47→16:48)
--- NOTE | 2016-03-22 09:07 | PCM.PNMED ---
Subjective Date of Service Mar 22, 2016 Subjective She is to affect dysarthric. She denies any pain. She is unable to move her left arm or leg. Exam Vital Signs Vital Sign - Last Date Time Temp Pulse Resp B/P Pulse Ox O2 Delivery O2 Flow Rate FiO2 03/22/16 04:48 92 22 98 OxyMask 2.00 03/22/16 03:34 36.4 173/95 Intake and Output 03/21/16 03/21/16 03/22/16 Cumulative From/Thru 15:00 23:00 07:00 03/19/16 09:51 - 03/22/16 06:38 Intake Total 915 ml 847 ml 4929 ml Output Total 750 ml 700 ml 4750 ml Balance 165 ml 147 ml 179 ml Intake Oral 0 ml 0 ml 0 ml IV Total 915 ml 847 ml 4929 ml Output Urine Total 750 ml 700 ml 4750 ml # Bowel Movements 0 0 0 Exam She has a dense left hemiparesis with a left facial droop. She has dysarthric speech. She is calm. Neck is supple Lungs are clear with normal effort Heart is regular without murmur Abdomen is soft and nondistended. Extremities are free of edema Good pedal pulses. IVs and Medications Medications Reviewed: Medications were reviewed in detail Lab and Diagnostics Result Diagram: 03/20/1642303/20/16423 X-Rays, CTs and MRIs PROCEDURE: CT BRAIN (TPA) ([id number]) FINDINGS: Image quality: Excellent. Brain: No intracranial bleeds or masses. There is cerebral volume loss for age , with resultant ventricular and sulcal prominence. There are periventricular and deep white matter chronic small vessel ischemic changes. There is intracranial internal carotid artery atherosclerosis. IMPRESSION: 1. No acute intracranial process. 2. Moderate atrophy and chronic microvascular ischemic changes. Dictated by: Kaila Aparicio M.D. on 03/19/2016 at 10:09 . 12-lead ECG 03/19 and NSR rate 65, LBBB pattern, inverted T waves inferiorly and V4-V6, slight ST depression II, V5-V6 Assessment & Plan 82-year-old woman with history of hypertension and A. fib presents with right- sided CVA with acute left hemiplegia Acute, active and or high risk problems: 1. Acute CVA. POA. Not a candidate for TPA. The patient has a dense left hemiparesis. CT scan indicates and a a lacunar infarct with possible small amount of hemorrhagic conversion. She had a headache yesterday which has resolved. She also had fairly severe dysphagia prohibiting oral intake. She is currently on a rectal aspirin. 2. Atrial fibrillation, chronic paroxysmal. She is currently in sinus rhythm. Anticoagulation was subtherapeutic. She will likely require a delayed reinstitution of Coumadin given abnormal signal on her CAT scan suggesting a possible small amount of hemorrhagic conversion. 3. Hypertension - Permissive hypertension criteria 48 hours then resume blood pressure control. Will begin to tighten her blood pressure control today with when necessary hydralazine. 4. Dysphagia, POA. We will reevaluate with speech. If she fails to improve substantially we will have to consider a short-term feeding tube. 5. Elevated bilirubin. Other LFTs are normal. No signs of abdominal pathology. - Follow at appropriate interval. Stable, resolved and her chronic problems: 6. Chronic kidney disease stage III. Creatinine creatinine of 1.65, 1.58 seems in range of her recent baseline. - Avoid nephrotoxins - Follow BMP 7. Ovarian cancer in remission 8. VTE prophylaxis - currently anticoagulated on warfarin; will initiate heparin prophylaxis as INR drops. CODE STATUS discussed with family who endorsed that she has a POLST form confirming DO NOT RESUSCITATE/DO NOT INTUBATE Pain Evaluation: Adequate Pain Control GI Prophylaxis: Not indicated VTE Prophylaxis: Theraputic Anticoag with Warfarin Resuscitation Status: DNR/DNI:Do Not Resuscitate/Intubate Time spent 30 minutes Silvano Jc MD Mar 22, 2016 09:07
[2016-03-22] MEDS: Labetalol 5 mg/mL 4 mL Inj IVPUSH PRN ×2 (09:29→16:14)
[2016-03-22] MEDS: hydrALAZINE 20 mg/mL Inj IVPUSH PRN ×3 (14:27→23:24)
--- NOTE | 2016-03-22 16:38 | DRSVH ---
PROCEDURE: X-RAY CHEST ONE VIEW, PORTABLE ([id number]) INDICATIONS: CONFIRM NG TECHNIQUE: One view of the chest was acquired. COMPARISON: [facility], CR, CHEST 2VW, 06/08/2008, 7:21. FINDINGS: Surgical changes and devices: Pacemaker. Nasogastric tube is placed with distal tip projecting below the left hemidiaphragm. Lungs and pleura: Trace left effusion.. Lungs are clear. Mediastinum: Mediastinal contours appear normal. Heart size is mildly enlarged. Bones and chest wall: No suspicious bony lesions. Overlying soft tissues appear unremarkable. IMPRESSION: Nasogastric tube as above. Trace left effusion. Dictated by: Kaila Aparicio M.D. on 03/22/2016 at 16:32 Approved by: Kaila Aparicio M.D. on 03/22/2016 at 16:32
--- NOTE | 2016-03-22 18:12 | DRSVH ---
PROCEDURE: X-RAY ABDOMEN, ONE VIEW ([id number]) INDICATIONS: FEED TUBE PLACEMENT TECHNIQUE: One view of the abdomen acquired. COMPARISON: None. FINDINGS: Surgical changes and devices: Partially visualized pacemaker and nasogastric tube are present. Distal tip of the latter is projecting below the left hemidiaphragm. Clips are present overlying the right upper quadrant. Bowel: Bowel gas pattern is normal. Soft tissues: No suspicious abdominal calcifications. Visualized solid organ contours appear normal in size. Bones: No suspicious bony lesions. IMPRESSION: Nasogastric tube as above. Dictated by: Kaila Aparicio M.D. on 03/22/2016 at 18:06 Approved by: Kaila Aparicio M.D. on 03/22/2016 at 18:06
[2016-03-22] MEDS: Heparin 5,000 Unit/mL Inj SUBQ SCH (20:24)
[2016-03-23] VITALS (12 sets, daily range): BP systolic 164–208; BP diastolic 81–123; PULSE 65–108; RESP 16–20; O2SAT 95–97
[2016-03-23] MEDS: hydrALAZINE 20 mg/mL Inj IVPUSH PRN ×3 (03:03→21:45)
[2016-03-23] MEDS: 0.9% Sodium Chloride 1,000 ML IV SCH ×2 (05:03→17:45)
[2016-03-23] MEDS: Heparin 5,000 Unit/mL Inj SUBQ SCH ×2 (08:31→21:48)
[2016-03-23] MEDS: Labetalol 5 mg/mL 4 mL Inj IVPUSH PRN (08:32)
[2016-03-23] MEDS: Acetaminophen IV 1,000 MG in IV Premix 1 EACH IV PRN (08:52)
--- NOTE | 2016-03-23 13:24 | PCM.PNMED ---
Subjective Date of Service Mar 23, 2016 Subjective She has dysarthric speech but is comfortable. She denies any dyspnea. No abdominal pain. She has a dense left hemiparesis. Exam Vital Signs Vital Sign - Last Date Time Temp Pulse Resp B/P Pulse Ox O2 Delivery O2 Flow Rate FiO2 03/23/16 11:51 36.6 65 20 169/83 95 Nasal Cannula 2.00 Intake and Output 03/22/16 03/22/16 03/23/16 Cumulative From/Thru 14:59 22:59 06:59 03/19/16 09:51 - 03/23/16 06:37 Intake Total 1050 ml 885 ml 6864 ml Output Total 1000 ml 5750 ml Balance 1050 ml -115 ml 1114 ml Intake Oral 0 ml 0 ml IV Total 1050 ml 885 ml 6864 ml Output Urine Total 1000 ml 5750 ml # Bowel Movements 0 Exam She is arousable. Somewhat lethargic. She has had left arm and leg hemiparesis and left facial droop. Conjunctivae days. Next upper Lungs are clear with normal effort. Heart is regular without murmur abdomen is soft nondistended. Extremities are free of edema good pedal pulses. IVs and Medications Medications Reviewed: Medications were reviewed in detail Lab and Diagnostics Result Diagram: 03/20/1642303/20/16423 X-Rays, CTs and MRIs PROCEDURE: CT BRAIN (TPA) ([id number]) FINDINGS: Image quality: Excellent. Brain: No intracranial bleeds or masses. There is cerebral volume loss for age , with resultant ventricular and sulcal prominence. There are periventricular and deep white matter chronic small vessel ischemic changes. There is intracranial internal carotid artery atherosclerosis. IMPRESSION: 1. No acute intracranial process. 2. Moderate atrophy and chronic microvascular ischemic changes. Dictated by: Kaila Aparicio M.D. on 03/19/2016 at 10:09 . 12-lead ECG 03/19 and NSR rate 65, LBBB pattern, inverted T waves inferiorly and V4-V6, slight ST depression II, V5-V6 Assessment & Plan 1. Acute CVA. POA. Not a candidate for TPA. The patient has a dense left hemiparesis. CT scan indicates a lacunar infarct with possible small amount of hemorrhagic conversion. . She also had fairly severe dysphagia prohibiting oral intake. She is currently on a rectal aspirin. She has our chemotherapy making minimal strides. She is being evaluated by [facility] rehabilitation. 2. Atrial fibrillation, chronic paroxysmal. She is currently in sinus rhythm. Anticoagulation was subtherapeutic. She will likely require a delayed reinstitution of Coumadin given abnormal signal on her CAT scan suggesting a possible small amount of hemorrhagic conversion. 3. Hypertension - Permissive hypertension criteria 48 hours then resume blood pressure control. Will begin to tighten her blood pressure control today with when necessary hydralazine. 4. Dysphagia, POA. We will reevaluate with speech. He feeding tube was placed last night. She is begun on tube feeds today and we will advanced per dietary's recommendations. [facility] rehabilitation as indicated that they will be able to potentially take her with a temporary NG tube in place to feed while assessing her dysphagia for improvement. 5. Elevated bilirubin. Other LFTs are normal. No signs of abdominal pathology. - Follow at appropriate interval. Stable, resolved and her chronic problems: 6. Chronic kidney disease stage III. Creatinine creatinine of 1.65, 1.58 seems in range of her recent baseline. - Avoid nephrotoxins - Follow BMP 7. Ovarian cancer in remission 8. VTE prophylaxis - currently anticoagulated on warfarin; will initiate heparin prophylaxis as INR drops. CODE STATUS discussed with family who endorsed that she has a POLST form confirming DO NOT RESUSCITATE/DO NOT INTUBATE Pain Evaluation: Adequate Pain Control GI Prophylaxis: Not indicated VTE Prophylaxis: Theraputic Anticoag with Warfarin Resuscitation Status: DNR/DNI:Do Not Resuscitate/Intubate Time spent 20 minutes Silvano Jc MD Mar 23, 2016 13:24
[2016-03-24 00:34] VITALS: BP 171/101; PULSE 91; RESP 18; O2SAT 97
[2016-03-24] MEDS: Acetaminophen IV 1,000 MG in IV Premix 1 EACH IV PRN (00:42)
[2016-03-24] MEDS: hydrALAZINE 20 mg/mL Inj IVPUSH PRN ×2 (00:48→09:26)
[2016-03-24 04:55] VITALS: BP 159/90; PULSE 88; RESP 20; O2SAT 98
[2016-03-24] MEDS: 0.9% Sodium Chloride 1,000 ML IV SCH (05:36)
[2016-03-24] MEDS: Heparin 5,000 Unit/mL Inj SUBQ SCH (09:26)
[2016-03-24 09:54] VITALS: BP 195/77; PULSE 72; RESP 18; O2SAT 98
[2016-03-24 11:06] VITALS: PULSE 83
[2016-03-24 12:50] VITALS: BP 179/81; PULSE 82; RESP 22; O2SAT 95
--- NOTE | 2016-03-24 14:53 | PCM.DIMED ---
Discharge Instructions Date of Service Mar 24, 2016 Dates of Hospitalization Mar 19, 2016 at 11:53 Discharge Diagnosis Discharge Diagnosis 1. Stroke with left hemiparesis, internal capsule. 2. Paroxysmal atrial fibrillation 3. Essential hypertension. 4. Transient hyperbilirubinemia 5. Chronic kidney disease stage III 6. Ovarian cancer, in remission. Diet Other (nothing by mouth with tube feeds for the next 2 weeks as noted per dietary. Further oral intake will be contingent upon her progress with speech therapy) Activity Other (per PT and OT.) Patient Instructions She will be followed by Dr. Sandoval at [facility] Silvano Jc MD Mar 24, 2016 14:53
[2016-03-24] MEDS ORDERED: LOSA100T29 NG (14:58)
[2016-03-24] MEDS ORDERED: ASPI325T32 NG (14:58)
[2016-03-24] MEDS ORDERED: METO-272 NG (14:58)
[2016-03-24] MEDS ORDERED: ATOR20TA65 NGTUBE (14:58)
[2016-03-24] MEDS ORDERED: LEVO50TA6 NG (14:58)
--- NOTE | 2016-03-24 15:19 | PCM.DC.MED ---
Discharge Summary Date of Service Mar 24, 2016 Dates of Hospitalization Date of Hospital Admission Mar 19, 2016 at 11:53 Date of Discharge: Mar 24, 2016 Providers: Admitting Physician: Johnny Perez MD Primary Care Physician: Shin North MD Attending Physician: Johnny Perez MD Diagnosis at Time of Discharge Diagnosis at Time of Discharge 1. Stroke with left hemiparesis, internal capsule. 2. Paroxysmal atrial fibrillation 3. Essential hypertension. 4. Transient hyperbilirubinemia 5. Chronic kidney disease stage III 6. Ovarian cancer, in remission. Consultations None Procedures XRay, CTs & MRIs PROCEDURE: CT BRAIN (TPA) ([id number]) FINDINGS: Image quality: Excellent. Brain: No intracranial bleeds or masses. There is cerebral volume loss for age , with resultant ventricular and sulcal prominence. There are periventricular and deep white matter chronic small vessel ischemic changes. There is intracranial internal carotid artery atherosclerosis. IMPRESSION: 1. No acute intracranial process. 2. Moderate atrophy and chronic microvascular ischemic changes. Dictated by: Kaila Aparicio M.D. on 03/19/2016 at 10:[address] 2 days into hospitalization: IMPRESSION: Broad area of infarction involving the right basal ganglia and thapa radiata, which has developed since the prior CT. Along the posterior aspect of the infarcted brain, there is a mild degree of hyperdensity. This is highly worrisome for mild hemorrhagic transformation. Note is made of age-appropriate brain parenchymal volume loss and chronic small vessel ischemic changes. Carotid Duplex ultrasound: No critical stenosis KUB and chest x-ray confirming placement of NG tube. . ECG 12 Lead 03/19 and NSR rate 65, LBBB pattern, inverted T waves inferiorly and V4-V6, slight ST depression II, V5-V6 Cardiac Echo Impression Interpretation Summary The left ventricle is normal in size. Left ventricular systolic function is normal. The ejection fraction is estimated to be 60-65%. LVEF is unchanged since prior study. There are no focal wall motion abnormalities. Borderline right ventricular enlargement. There is a pacemaker lead in the right ventricle. The right ventricular systolic function is normal. The right ventricular systolic pressure is estimated at 55 mmHg assuming a right atrial pressure of 8 mm Hg. RVSP has increased. The left atrium is mildly dilated. Right atrial size is normal. There is moderate tricuspid regurgitation. There is mild mitral regurgitation. There is mild aortic regurgitation. There is no other significant valvular heart disease. The ascending aorta is mildly enlarged. The aortic arch is mild-moderately enlarged. Moderate atherosclerotic plaque(s) in the aortic arch. Invasive Procedures Placement of temporary feeding tube Brief History Patient lives alone and manages her own affairs. She last spoke to her family member on the evening prior to day of admission. At that time there were no complaints or abnormalities noted. In the morning on the day of admission a neighbor noticed that her curtains were not open and contacted the family. A [id number] came to the home and found her mother obviously impaired with left-sided hemiplegia. The patient is somewhat sedated but has remained somewhat communicative throughout. She complains of a left-sided headache. She states that her A. fib was bad last night, but is not clear about what this means. She is concerned about missing her upcoming dermatology appointment. When asked she is not aware of any neurologic deficits. She is oriented to date but does not now cannot recognize she is in the hospital. Hospital Course 1. Acute CVA. POA. Not a candidate for TPA. The patient has a dense left hemiparesis. CT scan indicates a lacunar infarct with possible small amount of hemorrhagic conversion. . She also had fairly severe dysphagia prohibiting oral intake. She is currently on a rectal aspirin. She has our chemotherapy making minimal strides. She is being evaluated by [facility] inpatient rehabilitation. 2. Atrial fibrillation, chronic paroxysmal. She is currently in sinus rhythm. Anticoagulation was subtherapeutic. She will likely require a delayed reinstitution of Coumadin given abnormal signal on her CAT scan suggesting a possible small amount of hemorrhagic conversion. 3. Hypertension - Permissive hypertension criteria 48 hours then resume blood pressure control. Will begin to tighten her blood pressure control today with when necessary hydralazine. 4. Dysphagia, POA. We will reevaluate with speech. He feeding tube was placed last night. She is begun on tube feeds today and we will advanced per dietary's recommendations. [facility] [facility] inpatient rehabilitation as indicated that they will be able to potentially take her with a temporary NG tube in place to feed while assessing her dysphagia for improvement. 5. Elevated bilirubin. Other LFTs are normal. No signs of abdominal pathology. - Follow at appropriate interval. Stable, resolved and her chronic problems: 6. Chronic kidney disease stage III. Creatinine creatinine of 1.65, 1.58 seems in range of her recent baseline. - Avoid nephrotoxins - Follow BMP 7. Ovarian cancer in remission 8. VTE prophylaxis - currently anticoagulated on warfarin; will initiate heparin prophylaxis as INR drops. CODE STATUS discussed with family who endorsed that she has a POLST form confirming DO NOT RESUSCITATE/DO NOT INTUBATE Hospital course: This patient presented with a left hemiparesis. Due to the unknown time since last well as she was not a candidate for TPA. She was in sinus rhythm upon presentation but does have a history of paroxysmal atrial fibrillation with recent reported palpitations. She is admitted and a CT scan was negative for bleed. She was not eligible for MRI given a pacemaker. A 2-D echo is unremarkable other than mild left atrial enlargement. Carotid duplex ultrasounds were negative for critical stenoses. She was placed on rectal aspirin initially. She was allowed a permissive hypertension phase and that her blood pressure is controlled. She unfortunately failed to improve with her left hemiparesis and had some difficulties with her endurance with therapy. She also failed with attempts at speech evaluation for swallowing ultimately was felt to require at least a temporary feeding tube to give her a longer period time to see if her swallow would recover. A feeding tube was placed in position confirmed by x-ray. She was started on tube feeds. Disposition options were located including inpatient rehabilitation at [facility] versus a local [facility] facility. Ultimately owing to her inability to endure longer periods of therapy recommendations for therapy were for initial [facility] facility placement. She did have multiple complaints of pain in various parts of her body including her knee and chest. She had 2 electrocardiograms for chest pain at different times and these both noted a left bundle branch block. The situation was discussed with the patient's family on the day of discharge. It was emphasized that at this point and more aggressive workup would likely not be appropriate given her yue-stroke phase. Rather it would make sense to treat her medically with medications that would help out any potential chest pains and stroke prevention. That being said she will be discharged on aspirin initially as well as metoprolol and losartan. Given her history of paroxysmal atrial fibrillation she should likely be placed back on Coumadin within about 2 weeks. Interestingly in spite of her history of paroxysmal A. fib her mechanism stroke really does not appear to be cardioembolic as it was an internal capsule infarct in the right basal ganglia. 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 Exam Vital Signs (Last) Date Time Temp Pulse Resp B/P Pulse Ox O2 Delivery O2 Flow Rate FiO2 03/24/16 12:50 36.4 82 22 179/81 95 CPAP 03/24/16 09:54 2.00 Exam Dense left hemiparesis and left facial droop. Slurred speech 10 G days Neck supple. Lungs are clear with normal effort. Heart is regular without murmur Abdomen soft. Extremities are free of edema Test 03/19/16 09:50 03/19/16 23:34 03/20/16 04:24 03/20/16 18:30 Neutrophils (%) (Auto) 81.0% (40-74) Lymphocytes (%) (Auto) 12.3% (14-46) Monocytes (%) (Auto) 6.4% (4-12) Eosinophils (%) (Auto) 0.1% (0-5) Basophils (%) (Auto) 0% (0-3) Activated Partial Thromboplast Time 40.0sec (22.8-33.0) Hemoglobin A1c 5.9% (4.8-5.6) Magnesium Level 2.3mg/dL (1.6-2.6) Urine Color Yellow (YELLOW) Urine Appearance Slightly cloudy Urine pH 7.0 (5.0-8.0) Urine Specific Barnes 1.015 (1.003-1.035) Urine Protein Tracemg/dL (NEG,TRACE) Urine Glucose (UA) Negativemg/dL (NEGATIVE) Urine Ketones Negativemg/dL (NEGATIVE) Urine Occult Blood Large (NEGATIVE) Urine Nitrite Positive (NEGATIVE) Urine Bilirubin Negative (NEGATIVE) Urine Urobilinogen Normalmg/dL (NORMAL) Urine Leukocyte Esterase Small (NEGATIVE) Urine RBC 11-50/hpf (0-2) Urine WBC 11-50/hpf (0-5) Urine Epithelial Cells Occasional/hpf (NONE-MOD) Urine Crystals None seen (NONE SEEN) Urine Bacteria Many/hpf (NONE-FEW) Urine Hyaline Casts None/lpf (NONE) Urine Granular Casts None seen (NONE SEEN) Urine Waxy Casts None seen (NONE SEEN) Urine Red Blood Cell Casts None seen (NONE SEEN) Urine White Blood Cell Casts None seen (NONE SEEN) Urine Mucus None seen (None Seen) Urine Trichomonas None seen (NONE SEEN) Urine Yeast None (NONE SEEN) Urine Culture Reflexed Indicated White Blood Count 8.5th/mm3 (3.8-10.1) Red Blood Count 4.46mil/mm3 (3.90-5.20) Hemoglobin 13.0g/dL (12.0-15.6) Hematocrit 40.7% (35.0-46.0) Mean Corpuscular Volume 91.3fL (81-100) Mean Corpuscular Hemoglobin 29.1pg (27.0-35.0) Mean Corpuscular Hemoglobin Concent 31.9% (32.0-37.0) Red Cell Distribution Width 15.1% (12.3-15.4) Platelet Count 127bil/L (150-400) Prothrombin Time 18.2sec (8.1-12.5) Prothromb Time International Ratio 1.68ratio Sodium Level 147mEq/L (134-144) Potassium Level 4.0mEq/L (3.5-5.2) Chloride Level 110mEq/L (97-108) Carbon Dioxide Level 22mmol/L (18-29) Blood Urea Nitrogen 25mg/dL (8-27) Creatinine 1.33mg/dL (0.57-1.00) Estimat Glomerular Filtration Rate 54mL/min (>59) Glucose Level 115mg/dL (60-99) Calcium Level 8.8mg/dL (8.5-10.1) Total Bilirubin 1.5mg/dL (0.0-1.2) Aspartate Amino Transf (AST/SGOT) 19U/L (0-50) Alanine Aminotransferase (ALT/SGPT) 10U/L (0-32) Alkaline Phosphatase 62U/L (25-165) Total Protein 5.9g/dL (6.4-8.4) Albumin 3.6g/dL (3.4-5.0) Hold Urine Received (Received) Test 03/21/16 07:55 Troponin T 0.029ug/L (0.0-0.011) Discharge Medications Discharge Medications Aspirin (Aspirin) 325 Mg Tablet 325 MG NG DAILY Prescribed by: SILVANO HEMPHILL MD Atorvastatin Calcium (Atorvastatin Calcium) 20 Mg Tablet 40 MG NGTUBE HS Prescribed by: SILVANO HEMPHILL MD Levothyroxine (Levothyroxine) 50 Mcg Tablet 50 MCG NG DAILY Prescribed by: SILVANO HEMPHILL MD Losartan Potassium (Losartan Potassium) 100 Mg Tablet 100 MG NG DAILY Prescribed by: SILVANO HEMPHILL MD Metoprolol Succinate ER (Metoprolol Succinate ER) 50 Mg Tab.er.24h 50 MG NG BID Prescribed by: SILVANO HEMPHILL MD Followup Plan Disposition: [facility]. [facility] Discharge Diet: Other (nothing by mouth with tube feeds for the next 2 weeks as noted per dietary. Further oral intake will be contingent upon her progress with speech therapy) Discharge Activity: Other (per PT and OT.) Patient Instructions She will be followed by Dr. Sandoval at [facility] Time spent 60 minute Silvano Hemphill MD Mar 24, 2016 15:19
== END 2016-03-24 17:05 | DRG 64 ==
LOC: SED 09:50 → PCC 11:53
PROVIDERS: ADMIT Internal Medicine; ATTEND Internal Medicine
PROC: 0DH67UZ Insertion of Feeding Device into Stomach, Via Natural or Artificial Opening (ICD-10-PCS; principal; 2016-03-22)
PROC: 3E0G76Z Introduction of Nutritional Substance into Upper GI, Via Natural or Artificial Opening (ICD-10-PCS; 2016-03-22)
DX: I62.9 Nontraumatic intracranial hemorrhage, unspecified (principal); G82.50 Quadriplegia, unspecified; I63.9 Cerebral infarction, unspecified; G81.94 Hemiplegia, unspecified affecting left nondominant side; R47.01 Aphasia; R41.89 Other symptoms and signs involving cognitive functions and awareness; R13.10 Dysphagia, unspecified; R56.9 Unspecified convulsions; Z79.01 Long term (current) use of anticoagulants; Z95.0 Presence of cardiac pacemaker; Z85.43 Personal history of malignant neoplasm of ovary; Z92.21 Personal history of antineoplastic chemotherapy; R79.1 Abnormal coagulation profile; Z85.038 Personal history of other malignant neoplasm of large intestine; N18.3 Chronic kidney disease, stage 3 (moderate); I12.9 Hypertensive chronic kidney disease with stage 1 through stage 4 chronic kidney disease, or unspecified chronic kidney disease; Z66 Do not resuscitate; I48.0 Paroxysmal atrial fibrillation